=== PATIENT | female | born 1985 | race Caucasian/White ===

== ENCOUNTER 2024-04-13 19:31 | Emergency (ER) | payer SELFPAY ==
[~2024-04-13] VITALS: Ht 175.3 cm; Wt 60.0 kg
[2024-04-13 19:51] VITALS: BP 141/98; PULSE 122; RESP 18; TEMP 98.9; O2SAT 98
== END 2024-04-13 21:09 | disposition home or self-care (01) ==
LOC: ER 19:31
DX: F10.129 Alcohol abuse with intoxication, unspecified (principal); Y90.9 Presence of alcohol in blood, level not specified
CPT/HCPCS: 99283

== ENCOUNTER 2024-04-13 22:55 | Emergency (ER) | payer BC ==
[~2024-04-13] VITALS: Ht 162.6 cm; Wt 59.0 kg
[2024-04-13 23:05] VITALS: O2SAT 98
[2024-04-13] MEDS ORDERED: CHLORDIAZEPOXIDE 25MG CAPSULE PO ONE (23:15)
[2024-04-13] MEDS ORDERED: TETANUS, DIPHTHERIA, PERTUSSIS VAC/PF 0.5ML (>10YR OLD) IM ONE (23:15)
[2024-04-13] MEDS ORDERED: MORPHINE SULFATE 4 MG/ML INJ (FOR IV/IM USE) IV ONE (23:15)
[2024-04-14 00:01] LABS: BASOPHILS % 0.6 % (0.0-2.0); EOSINOPHILS % 1.3 % (0.0-5.0); HEMATOCRIT. 47.1 % (36.0-48.0); HEMOGLOBIN. 16.4 g/dL (12.0-16.0); LYMPHOCYTES % 26.4 % (20.0-50.0); MEAN CORPUSCULAR HEMOGLOBIN 39.4 pg (28.0-32.0); MEAN CORPUSCULAR HGB CONC 34.7 g/dL (31.0-37.0); MEAN CORPUSCULAR VOLUME 113.4 fL (81.0-99.0); MEAN PLATELET VOLUME 6.9 fl (7.4-10.4); MONOCYTES % 9.6 % (2.0-8.0); NEUTROPHILS % 62.1 % (40.0-76.0); PLATELET 238 x1000/uL (130-400); RED BLOOD CELL COUNT 4.16 mill/uL (4.2-5.4); RED CELL DISTRIBUTION WIDTH 14.3 % (11.6-14.6); WHITE BLOOD COUNT 6.4 x1000/uL (4.5-11.0)
[2024-04-14] MEDS: CHLORDIAZEPOXIDE 25MG CAPSULE PO NR (00:03)
[2024-04-14] MEDS: TETANUS, DIPHTHERIA, PERTUSSIS VAC/PF 0.5ML (>10YR OLD) IM ONE (00:04)
[2024-04-14] MEDS: MORPHINE SULFATE 4 MG/ML INJ (FOR IV/IM USE) IV NR (00:04)
[2024-04-14 00:06] LABS: CHLORIDE 107 mEq/L (98-107); POTASSIUM 3.9 mEq/L (3.5-5.1); SODIUM 143 mEq/L (136-145)
[2024-04-14 00:07] LABS: CARBON DIOXIDE 20 mEq/L (21-32)
[2024-04-14 00:12] LABS: CREATININE 0.5 mg/dL (0.6-1.0); GLUCOSE 94 mg/dL (70-105); UREA NITROGEN BLOOD 7 mg/dL (9-23)
[2024-04-14 00:16] LABS: ADD RBC MORPHOLOGY YES; DIFFERENTIAL COMMENT 1
[2024-04-14 00:21] LABS: ETHANOL BLOOD 357 mg/dL (<10)
[2024-04-14 01:04] LABS: HCG SCREEN NEGATIVE
[2024-04-14] MEDS: FOLIC ACID 1 MG, THIAMINE HCL 100 MG, MVI, ADULT NO.1 10 ML in DEXTROSE 5% WATER 1,000 ML IV ONE (01:16)
[2024-04-14] MEDS: HYDROCODONE/ACETAMINOPHEN 5/325MG TABLET PO PRN (02:02)
[2024-04-14 08:58] VITALS: TEMP 98.3
[2024-04-14 12:07] VITALS: BP 132/85; PULSE 86; RESP 16; O2SAT 95
[2024-04-14 16:18] LABS: PLATELET ESTIMATE NORMAL
== END 2024-04-14 12:50 | disposition left against medical advice (07) ==
LOC: ER 22:55
DX: S01.01XA Laceration without foreign body of scalp, initial encounter (principal); F10.129 Alcohol abuse with intoxication, unspecified; X58.XXXA Exposure to other specified factors, initial encounter; Y93.89 Activity, other specified; Y92.89 Other specified places as the place of occurrence of the external cause; Y99.8 Other external cause status; Y90.9 Presence of alcohol in blood, level not specified
CPT/HCPCS: 80048; 80320; 84703; 85025; 36415; 12001; 99285; 70450; 72125; 90715; 90471; 96365; 96366; 96375; J3490 ×2; J3411; J7070; J2270; G0480